=== PATIENT | male | born 1980 | race Caucasian/White ===

== ENCOUNTER 2021-11-16 19:00 | Emergency (ER) | payer MEDICAID ==
[~2021-11-16] VITALS: Ht 175.3 cm; Wt 86.0 kg
[2021-11-16 22:02] LABS: BASOPHILS # (AUTO) 0.1 X10'3 (0-0.2); BASOPHILS % (AUTO) 0.5 % (0-1); EOSINOPHILS # (AUTO) 0.1 X10'3 (0-0.9); EOSINOPHILS % (AUTO) 1.1 % (0-6); HEMATOCRIT 45.4 % (42.0-52.0); HEMOGLOBIN 15.5 g/dl (14.0-17.9); LYMPHOCYTES # (AUTO) 4.5 X10'3 (1.1-4.8); LYMPHOCYTES % (AUTO) 36.3 % (21-51); MEAN CORPUSCULAR HEMOGLOBIN 32.2 PG (27.0-31.0); MEAN CORPUSCULAR HGB CONC 34.2 g/dL (33.0-36.5); MEAN CORPUSCULAR VOLUME 94.2 FL (78-98); MEAN PLATELET VOLUME 10.8 FL (7.4-10.4); MONOCYTES # (AUTO) 0.9 X10'3 (0-0.9); MONOCYTES % (AUTO) 6.9 % (2-12); NEUTROPHILS # (AUTO) 6.8 X10'3 (1.8-7.7); NEUTROPHILS % (AUTO) 55.2 % (42-75); PLATELET COUNT 211 X10'3 (140-440); RED BLOOD COUNT 4.81 X10'6 (4.70-6.10); RED CELL DISTRIBUTION WIDTH 14.3 % (11.5-14.5); WHITE BLOOD COUNT 12.3 X10'3 (4.5-11.0)
--- NOTE | 2021-11-16 22:11 | NUR ---
The patient self presented to the ER after coming into [facility] earlier in the day from [place]. He stated that a friend drove him here. He denies that he is suicidal. He stated he doesn't feel safe because he is having voices calling him names. He denies that the voices are command in nature. He stated he doesn't feel safe on the street 2nd to paranoia. He does not seem to be responding to internal stimuli. He stated that he is homeless and had two large bags of belongings with him. He stated that the only med that he has prescribed to him is norco for right shoulder pain. He denies visual hallucinations. He is hard of hearing. He was cooperative with nursing staff. He stated that his anxiety was high.
[2021-11-16 22:13] LABS: ALANINE AMINOTRANSFERASE 58 U/L (12-78); ALBUMIN 4.1 G/DL (3.4-5.0); ALBUMIN/GLOBULIN RATIO 1.2 (1.1-1.5); ALKALINE PHOSPHATASE 98 IU/L (46-116); ANION GAP 10 (8-16); ASPARTATE AMINO TRANSFERASE 35 U/L (10-37); BILIRUBIN,TOTAL 0.7 MG/DL (0.1-1.0); BLOOD UREA NITROGEN 14 MG/DL (7-18); BUN/CREATININE RATIO 14.3 (5.4-32.0); CALCIUM 8.9 MG/DL (8.5-10.1); CHLORIDE 102 MMOL/L (99-107); CREATININE 0.98 MG/DL (0.60-1.10); GLUCOSE 97 MG/DL (70-104); SODIUM 138 MMOL/L (135-145); TOTAL CARBON DIOXIDE 25.6 MMOL/L (24-32); TOTAL PROTEIN 7.6 G/DL (6.4-8.2); eGFR 84 ML/MIN
--- NOTE | 2021-11-16 22:15 | NUR ---
The patient reports using meth once in the past 30 days.
[2021-11-16 22:24] LABS: ETHANOL < 0.010 GM/DL (0.0-0.010)
[2021-11-16 22:29] LABS: POTASSIUM 3.9 MMOL/L (3.5-5.1)
--- NOTE | 2021-11-16 22:38 | NUR ---
The patient is resting on his bed
[2021-11-16 22:44] LABS: URINE AMPHETAMINE SCREEN POSITIVE (Neg); URINE BARBITUATE SCREEN NEGATIVE (Neg); URINE BENZODIAZEPINES SCREEN NEGATIVE (Neg); URINE CANNABINOID SCREEN NEGATIVE (Neg); URINE COCAINE SCREEN NEGATIVE (Neg); URINE METHADONE SCREEN NEGATIVE (Neg); URINE OPIATE SCREEN POSITIVE (Neg); URINE PHENCYCLIDINE SCREEN NEGATIVE (Neg)
--- NOTE | 2021-11-17 00:03 | NUR ---
The patient appears to be sleeping
[2021-11-17] MEDS ORDERED: OLANZapine 5mg rapidly disint. tablet PO STA (00:30)
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
--- NOTE | 2021-11-17 00:46 | NUR ---
PACKET SENT TO [facility]
--- NOTE | 2021-11-17 01:09 | NUR ---
The patient is resting on his bed
--- NOTE | 2021-11-17 03:00 | NUR ---
The patient appears to be sleeping
--- NOTE | 2021-11-17 05:12 | NUR ---
THe patient appeared to have slept well after receiving zyprexa earlier in the shift.
[2021-11-17 05:53] VITALS: BP 134/84
--- NOTE | 2021-11-17 06:38 | NUR ---
Pt is lying in bed on his right side, he appears to be sleeping.
[2021-11-17] MEDS ORDERED: NO HOME MEDS (06:55)
--- NOTE | 2021-11-17 08:30 | NUR ---
Pt is still sleeping.
--- NOTE | 2021-11-17 09:16 | NUR ---
[facility] at bedside evaluating patient.
--- NOTE | 2021-11-17 09:30 | NUR ---
Per [facility], pt does not meet 5150 criteria and is to be discharged.
--- NOTE | 2021-11-17 11:30 | NUR ---
Pt resting quietly in bed.
--- NOTE | 2021-11-17 12:08 | NUR ---
Lunch tray came, pt is eating lunch before departing.
--- NOTE | 2021-11-17 12:40 | NUR ---
Pt discharged, ambulated off the unit accompanied by security, all belongings returned.
== END 2021-11-17 12:40 | disposition home or self-care (01) ==
LOC: ER 19:03
DX: R44.0 Auditory hallucinations (principal); Z20.822 Contact with and (suspected) exposure to COVID-19; F41.9 Anxiety disorder, unspecified; F19.10 Other psychoactive substance abuse, uncomplicated; F15.10 Other stimulant abuse, uncomplicated; Z79.899 Other long term (current) drug therapy
CPT/HCPCS: 80053; 80305; 80320; 84443; 85025; 87811; 99285